=== PATIENT | female | born 1995 ===

== ENCOUNTER 2017-03-23 11:17 | Emergency (ER) | payer OTHER, BC ==
[~2017-03-23] VITALS: Ht 180.3 cm; Wt 74.8 kg
[2017-03-23] MEDS ORDERED: BUTA1CAP6 PO (11:32)
[2017-03-23] MEDS ORDERED: PRED20TA6 PO (11:32)
[2017-03-23] MEDS ORDERED: ALB6.7R INH (11:32)
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
[2017-03-23] MEDS ORDERED: DIPHTH/TETANUS/ACEL. PERTUSSIS IM ONLY ONE (11:45)
[2017-03-23] MEDS ORDERED: METHOCARBAMOL 500 MG TAB PO ONE (12:25)
[2017-03-23] MEDS ORDERED: ONDANSETRON 4 MG ODT TABDP SL ONE (12:25)
[2017-03-23 13:00] VITALS: BP 108/78
[2017-03-23] MEDS ORDERED: LOR5/325 PO (13:06)
[2017-03-23] MEDS ORDERED: ONDA4TAB PO (13:06)
[2017-03-23] MEDS ORDERED: METH-543 PO (13:11)
== END 2017-03-23 13:24 | disposition home or self-care (01) ==
LOC: ER 11:27
DX: S00.83XA Contusion of other part of head, initial encounter (principal); V43.52XA Car driver injured in collision with other type car in traffic accident, initial encounter
CPT/HCPCS: 90471; 90715; 99282; S0119